=== PATIENT | female | born 1965 | race Two or more races ===

== ENCOUNTER 2018-11-03 06:40 | Day surgery (SDC) | payer BC ==
[2018-11-03] MEDS ORDERED: MIDAZOLAM 1 MG/ML 2 ML INJ (08:11)
[2018-11-03] MEDS ORDERED: GLYCOPYRROLATE 0.4 MG INJ (08:11)
[2018-11-03] MEDS ORDERED: ROCURONIUM 50 MG INJ (08:11)
[2018-11-03] MEDS ORDERED: PROPOFOL 20 ML (08:11)
[2018-11-03] MEDS ORDERED: FENTAnyl 50 MCG/ML VIAL (08:11)
[2018-11-03] MEDS ORDERED: CEFAZOLIN 1 GM INJ (08:11)
[2018-11-03] MEDS ORDERED: ONDANSETRON 4 MG INJ (08:12)
[2018-11-03] MEDS ORDERED: DEXAMETHASONE 4 MG/ML 5 ML INJ (08:12)
[2018-11-03] MEDS ORDERED: hydrALAzine 20 MG INJ IV (08:30)
[2018-11-03] MEDS ORDERED: DIPHENHYDRAMINE 50 MG INJ IV (08:30)
[2018-11-03] MEDS ORDERED: MEPERIDINE 25 MG INJ IV (08:30)
[2018-11-03] MEDS ORDERED: EPHEDrine SULFATE 50 MG/5 ML SYG IV (08:30)
[2018-11-03] MEDS ORDERED: MIDAZOLAM 1 MG/ML 2 ML INJ IV (08:30)
[2018-11-03] MEDS ORDERED: FENTAnyl 50 MCG/ML VIAL IV ×2 (08:30)
[2018-11-03] MEDS ORDERED: LABETALOL HCL 20MG INJ IV (08:30)
[2018-11-03] MEDS ORDERED: OXYCODONE/ACETAMINOPHEN (5/325) TAB PO ×2 (08:30)
[2018-11-03] MEDS ORDERED: TRIMETHOBENZAMIDE 100 MG/ML VIAL IM (08:30)
[2018-11-03] MEDS ORDERED: IPRATROPIUM (NEB) 0.5 MG/2.5 ML AMP HHN (08:30)
[2018-11-03] MEDS ORDERED: HYDROmorphONE 1 MG/5 ML IV SYRINGE IV ×2 (08:30)
[2018-11-03] MEDS ORDERED: ALBUTEROL 0.083% (NEB) 2.5 MG/3 ML AMP HHN (08:30)
[2018-11-03] MEDS ORDERED: ACETAMINOPHEN 325 MG TAB PO (09:00)
[2018-11-03] MEDS: FENTAnyl 50 MCG/ML VIAL IV (09:03)
[2018-11-03] MEDS: HYDROmorphONE 1 MG/5 ML IV SYRINGE IV (09:04)
[2018-11-03] MEDS: ONDANSETRON 4 MG INJ IV (09:04)
== END 2018-11-03 10:03 | disposition home or self-care (01) ==
LOC: SDS 06:40
DX: N85.00 Endometrial hyperplasia, unspecified (principal); D25.9 Leiomyoma of uterus, unspecified
CPT/HCPCS: 58558; 84702; 86850; 86900; 86901; 88305